=== PATIENT | female | born 1935 | race Caucasian/White ===

== ENCOUNTER → 2016-10-09 | Outpatient (CLI) | payer OTHER ==
[~2016-10-09] MED LIST: ALPRAZOLAM ER0.5 MG PO; ALPRAZOLAM PO; ASPIRIN PO; ATENOLOL PO; ATENOLOL50 MG PO; CALCIUM 500 + D1 TAB PO; CARTIA XT180 M1 PO; CARTIA XT180 MG PO; ELIQUIS5 MG; FOSAMAX PO; LEXAPRO PO; LIPITOR20 MG PO; LISINOPRIL PO; NORVASC PO; OMEPRAZOLE40 M1 PO; POTASSIUM GLUCO99 MG PO; PRILOSEC PO; SIMVASTATIN80 MG PO; ZESTRIL40 MG PO; ZOCOR PO; ZOLOFT PO
[2016-10-09 14:19] LABS: BASOPHIL% 0.2 % (0-2.5); EOSINOPHIL# 0.1 X10e3 (0-0.7); EOSINOPHIL% 1.5 % (0.0-7.0); HEMATOCRIT 37.1 % (35.0-45.0); HEMOGLOBIN 12.4 gm/dL (12.0-16.0); LYMPHOCYTE# 1.6 X10e3 (1.0-3.5); LYMPHOCYTE% 29.9 % (17.0-45.0); MEAN CELL VOLUME 94.2 FL (83-96); MEAN CORPUSCULAR HEMOGLOBIN 31.4 PG (28-34); MEAN CORPUSCULAR HGB CONC 33.3 g/dL (30-36); MEAN PLATELET VOLUME 7.2 FL (6.5-11.5); MONOCYTE# 0.8 X10e3 (0-1.0); MONOCYTE% 15.4 % (3.0-12.0); NEUTROPHIL# 2.9 X10e3 (1.5-7.1); PLATELET COUNT 212 X10e3 (140-420); RED BLOOD COUNT 3.94 X10e (3.90-5.30); RED CELL DISTRIBUTION WIDTH 13.3 % (11.0-15.5); WHITE BLOOD COUNT 5.4 X10e3 (4.0-10.5)
[2016-10-09 14:20] LABS: DIFF IND NO
[2016-10-09 15:26] LABS: ALBUMIN SERUM 4.2 g/dL (3.5-5.0); BILIRUBIN,TOTAL 0.5 mg/dL (0.2-2.0); BUN/CREATININE RATIO 11.66; CALCIUM SERUM 9.2 mg/dL (8.4-10.2); CREATININE SERUM 0.6 mg/dL (0.6-1.4); GLOM FILT RATE Estimated 84.9 mL/min (>60); POTASSIUM 4.1 mmol/L (3.5-5.1); PROTEIN TOTAL SERUM 6.3 g/dL (6.0-8.3)
== END | disposition home or self-care (01) ==
LOC: CLAB 13:58
PROVIDERS: Internal Medicine Gastroenterology
DX: R79.89 Other specified abnormal findings of blood chemistry (principal)
CPT/HCPCS: 36415; 80053; 85025

== ENCOUNTER → 2016-11-13 | Day surgery (SDC) | payer OTHER ==
--- NOTE | ~2016-11-13 | EKG ---
PATIENT: BEAR CARRASQUILLO UNIT #: [id number] Ventricular Rate: 84 BPM Atrial Rate: 94 BPM QRS Duration: 92 ms Q-T Interval: 394 ms QTC Calculation(Bezet): 465 ms Calculated R [place]: 74 degrees Calculated T [place]: 71 degrees Diagnosis Line: Atrial fibrillation Diagnosis Line: Nonspecific ST and T wave abnormality , probably Diagnosis Line: digitalis effect Diagnosis Line: Abnormal ECG Diagnosis Line: When compared with ECG of 12-JAN-2010 15:27, Diagnosis Line: Atrial fibrillation has replaced Sinus rhythm Diagnosis Line: Confirmed by NANCY LARRY MD ([id number]) on 11/14/2016 Diagnosis Line: 10:35:45 AM INTERPRETING MD: LARON BARKER
--- NOTE | ~2016-11-13 | OR ---
Unit #: [id number] #: [id number] Patient: BEAR CARRASQUILLO [id number] [address] [address] [id number] O MR#: [id number] NAME: BEAR CARRASQUILLO ROOM: Date of Procedure: 11/13/2016 Admission Date: 11/13/2016 Surgeon: Natalio Pat M.D. : 1935 Attending Physician: Natalio Pat M.D. Primary Care Physician: Italo Dejesus M.D. OPERATIVE REPORT PREOPERATIVE DIAGNOSIS Profound nausea. The patient had intermittent nausea for the past several months. There is no history of vomiting. Her appetite and weight are unchanged. PROCEDURE PERFORMED Upper gastrointestinal endoscopy. POSTOPERATIVE DIAGNOSES 1. The patient had moderate gastritis involving the mid body and antrum of the stomach with erosions, erythema, and patchy erythematous streaks. Appropriate biopsies obtained for CLOtest. 2. Rest of the examination up to third part of the duodenum was normal. RECOMMENDATIONS No specific treatment is indicated. Her symptoms are fairly sporadic. The patient will be followed up in the office after the results of CLOtest. SEDATION USED MAC. DESCRIPTION OF PROCEDURE Following detailed explanation of the potential risks and complications of upper endoscopy, namely perforation, bleeding, complication related to sedation, the patient was brought to GI lab and laid in the left lateral decubitus position. Lubricated tip of the Olympus video upper endoscope was passed through the bite block into the proximal esophagus under direct vision. The entire esophageal mucosa was examined and appeared normal. Z-line was nicely demarcated, there being no esophagitis or hiatus hernia. The scope was then advanced into the gastric cavity and the latter was insufflated. Mucosa of the fundus, body, and antrum was examined. The patient was noted to have antral erythema, erosions, and erythematous streaks as well as in the distal body of the stomach. Pylorus was intubated with visualization of the normal duodenal bulb and second and third part of the duodenum. Upon withdrawal and retroflexion, incisura, cardia, and greater curve examined and biopsy obtained from the antrum for CLOtest. The scope was withdrawn in the distal esophagus. The entire esophageal mucosa was examined all the way up to pharynx. No additional findings noted. The patient tolerated the procedure without any postprocedure complications. Unit #: [id number] #: [id number] Patient: BEAR CARRASQUILLO Melissa by... Naomi Hill/saritha TD: 11/13/2016 08:02 JOB #: [id number] OPERATIVE REPORT Page 1 of 1 X Natalio Pat MD PROCEDURE OPERATIVE NOTE
--- NOTE | ~2016-11-13 | CO ---
Unit #: [id number] #: [id number] Patient: BEAR JUNE [id number] [address] [place], [place] [address] [id number] O MR#: [id number] NAME: BEAR JUNE ROOM: Age: 81 Sex: F Admission Date: 11/13/2016 : 1935 Attending Physician: Natalio Pat M.D. Primary Care Physician: Italo Dejesus M.D. Requesting Physician: Natalio Pat M.D. CONSULTATION REPORT REASON FOR CONSULTATION REQUEST Atrial fibrillation. HISTORY OF PRESENT ILLNESS Mrs. June is a pleasant 81-year-old seen in the recovery room after endoscopy with her boyfriend present. He is a patient of Dr. Costello at [facility]. She has no cardiac history. Today, she underwent endoscopy, by Dr. Pat, and atrial fibrillation was noted. She has a history of dyslipidemia but no history of hypertension or diabetes although her fasting blood sugar today is high. She has no endocrine history, history, but she does have GERD, and chronic nausea. She has had no angina or anginal equivalent, PND, orthopnea, syncope, presyncope, edema, or claudication. She does have intermittent leg swelling, not consistent. PAST MEDICAL HISTORY Dyslipidemia. PAST SURGICAL HISTORY EGD today. REVIEW OF SYSTEMS As per history of present illness. Otherwise, as stated below. GENERAL: No recent fever or chills. No recent weight change. ENDOCRINE: Negative for thyroid disease. HEENT: No auditory or visual disturbances. GASTROINTESTINAL: Chronic nausea. RESPIRATORY: She sleeps poorly, up and down all night, she states. CARDIOVASCULAR: Vide supra. GENITOURINARY: No dysuria. No back pain suggestive of nephrolithiasis. NEUROLOGIC: No seizure disorder, recent CVA, or TIA. PSYCHOLOGICAL: No depression. FAMILY HISTORY Negative for premature atherosclerotic disease. SOCIAL HISTORY No tobacco use. Takes only about two beers every two weeks. ALLERGIES Sulfa and Ceclor. Unit #: [id number] #: [id number] Patient: BEAR JUNE MEDICATIONS 1. Cartia 180 mg daily. 2. Zestril 40 mg daily. 3. Atenolol 50 mg daily. 4. Simvastatin 80 mg daily. 5. Omeprazole 40 mg daily. 6. Alprazolam 0.5 mg daily. PHYSICAL EXAMINATION GENERAL: Pleasant, alert, in no acute distress. VITAL SIGNS: Blood pressure 165/75 (no meds today), heart rate is 88 and irregularly irregular, respiratory rate is 16, height 67 inches, weight 54 kilograms. SKIN: Warm and dry. No xanthelasma. MUSCULOSKELETAL: No missing digits. Moves easily for evaluation. NEUROLOGICAL: Appropriate mood and affect. Alert and oriented x3. HEENT: Pupils equal, round and reactive. No oral cyanosis. No icterus. NECK: Carotids clear to auscultation with no carotid bruits. Normal carotid upstroke bilaterally. Thyroid is normal in size and texture without masses or tenderness. CHEST: Clear to auscultation with no rales or wheezes. Good effort. CARDIAC: Irregularly irregular rhythm. Grade 1/6 MR murmur. ABDOMEN: No hepatosplenomegaly, masses or tenderness. Normal bowel sounds. No abdominal bruits heard. EXTREMITIES: No clubbing, cyanosis or edema. Excellent posterior tibial and dorsalis pedis pulses. DIAGNOSTIC STUDIES CARDIOVASCULAR: I reviewed the ECG which shows no acute ST changes. Heart rate is 84 and irregularly irregular. Fasting glucose 119, creatinine 0.8, potassium 3.4, TSH low at 0.71, hemoglobin is 14.1, white blood count 5.3, platelet count 211,000. IMPRESSION 1. Unknown onset atrial fibrillation, rate controlled. 2. Possible sleep apnea. 3. Mild hypokalemia. 4. Borderline hyperthyroidism. 5. Gastroesophageal reflux disease . RECOMMENDATIONS She is okay to go home. Her boyfriend follows up with Dr. Costello and they are going to try to get an appointment with him. She is rate controlled with the diltiazem. I added Eliquis 5 mg daily because her CHADS score is approximately 3, with age, female, hypertension. No history of heart failure. No history of diabetes but fasting glucose is high. Recommended follow up as soon as possible, and possible sleep study, as well as follow up regarding further thyroid studies. Dictated by... Roscoe Booker M.D. FREDY/sammie Unit #: [id number] #: [id number] Patient: BEAR JUNE TD: 11/13/2016 11:41 JOB #: [id number] CONSULTATION REPORT Page 1 of 1 X Roscoe Booker MD CONSULTATION REPORT
[2016-11-13 09:06] LABS: BASOPHIL% 0.1 % (0-2.5); EOSINOPHIL% 0.5 % (0.0-7.0); HEMOGLOBIN 14.1 gm/dL (12.0-16.0); LYMPHOCYTE# 1.3 X10e3 (1.0-3.5); LYMPHOCYTE% 25.1 % (17.0-45.0); MEAN CELL VOLUME 94.3 FL (83-96); MEAN CORPUSCULAR HEMOGLOBIN 31.6 PG (28-34); MEAN CORPUSCULAR HGB CONC 33.5 g/dL (30-36); MEAN PLATELET VOLUME 8.4 FL (6.5-11.5); MONOCYTE# 0.4 X10e3 (0-1.0); NEUTROPHIL# 3.5 X10e3 (1.5-7.1); NEUTROPHIL% 66.3 % (40-75); PLATELET COUNT 211 X10e3 (140-420); RED BLOOD COUNT 4.45 X10e (3.90-5.30); RED CELL DISTRIBUTION WIDTH 13.4 % (11.0-15.5); WHITE BLOOD COUNT 5.3 X10e3 (4.0-10.5)
[2016-11-13 09:08] LABS: DIFF IND NO
[2016-11-13 09:39] LABS: ALBUMIN SERUM 4.7 g/dL (3.5-5.0); BILIRUBIN,TOTAL 0.7 mg/dL (0.2-2.0); CALCIUM SERUM 9.7 mg/dL (8.4-10.2); CREATININE SERUM 0.8 mg/dL (0.6-1.4); GLOM FILT RATE Estimated 68.7 mL/min (>60); POTASSIUM 3.4 mmol/L (3.5-5.1); PROTEIN TOTAL SERUM 7.5 g/dL (6.0-8.3)
== END | disposition home or self-care (01) ==
LOC: COPS 05:47
PROVIDERS: Anesthesiology
DX: K29.70 Gastritis, unspecified, without bleeding (principal); K21.9 Gastro-esophageal reflux disease without esophagitis; M17.9 Osteoarthritis of knee, unspecified; I10 Essential (primary) hypertension; E78.5 Hyperlipidemia, unspecified; F41.9 Anxiety disorder, unspecified; Z87.01 Personal history of pneumonia (recurrent); Z88.2 Allergy status to sulfonamides; Z88.1 Allergy status to other antibiotic agents; Z79.899 Other long term (current) drug therapy; Z90.49 Acquired absence of other specified parts of digestive tract
CPT/HCPCS: 80053; 84443; 84484; 85025; 87077; 93005

== ENCOUNTER 2017-03-06 00:51 | Emergency (ER) | payer OTHER ==
[~2017-03-06] VITALS: Ht 162.6 cm; Wt 52.2 kg
--- NOTE | ~2017-03-06 | CR173 ---
[facility] A Service of [facility] & [facility] RADIOLOGY TEXT RESULTS PATIENT: BEAR CARRASQUILLO LOCATION: [facility] : 34 UNIT #: [id number] AGE: [address]: Meche Ocampo APRN SEX: F ORDER DR: [id number] [facility] [address] [facility] [facility]. [place], [place] [address] [id number] E MR#: [id number] Acc #: [id number] NAME: BEAR CARRASQUILLO : 1935 SEX: F STUDY DATE/TIME: 03/06/2017 1:55 UNIT: [facility] ROOM: STUDY DESCRIPTION: CR Knee 3 Views Rt Attending Physician: Meche Ocampo A.P.R.N. Ordering Physician: Meche Ocampo A.P.R.N. Primary Care Physician: Italo Dejesus M.D. MEDICAL IMAGING REPORT This report is preliminary unless electronic signature is present EXAM Right knee series INDICATIONS Right knee pain after a fall today. PROCEDURE Three views of the right knee COMPARISON None FINDINGS No acute fracture or dislocation. Significant medial compartment arthrosis. IMPRESSION No acute findings. Dictated by... Raad Palmer M.D. THIS IS AN ELECTRONICALLY VERIFIED REPORT Raad Palmer M.D. at 03/06/2017 9:54 PM EED/psc TD: 03/06/2017 11:25 JOB #: [id number] MEDICAL IMAGING REPORT Page 1 of 1 COPY
--- NOTE | ~2017-03-06 | CR282 ---
[facility] A Service of [facility] & [facility] RADIOLOGY TEXT RESULTS PATIENT: BEAR CARRASQUILLO LOCATION: [facility] : 34 UNIT #: [id number] AGE: [address]: Meche Ocampo APRN SEX: F ORDER DR: [id number] [facility] [address] [place], [place] [address] [id number] E MR#: [id number] Acc #: [id number] NAME: BEAR CARRASQUILLO : 1935 SEX: F STUDY DATE/TIME: 03/06/2017 2:01 UNIT: [facility] ROOM: STUDY DESCRIPTION: CR Wrist Min 3 View Rt Attending Physician: Meche Ocampo A.P.R.N. Ordering Physician: Meche Ocampo A.P.R.N. Primary Care Physician: Italo Dejesus M.D. MEDICAL IMAGING REPORT This report is preliminary unless electronic signature is present EXAM Right wrist series. INDICATIONS Right wrist pain after a fall today. PROCEDURE Three views of the right wrist. COMPARISON 02/27/2015 FINDINGS Generalized osteopenia. No acute fracture or dislocation. IMPRESSION No acute findings. Dictated by... Raad Palmer M.D. THIS IS AN ELECTRONICALLY VERIFIED REPORT Raad Palmer M.D. at 03/06/2017 9:54 PM CURRY/mirtha TD: 03/06/2017 11:23 JOB #: [id number] MEDICAL IMAGING REPORT Page 1 of 1 COPY
== END 2017-03-06 02:59 | disposition home or self-care (01) ==
LOC: CED 00:51
DX: S63.501A Unspecified sprain of right wrist, initial encounter (principal); S80.01XA Contusion of right knee, initial encounter; I10 Essential (primary) hypertension; K21.9 Gastro-esophageal reflux disease without esophagitis; Z79.899 Other long term (current) drug therapy; Z88.2 Allergy status to sulfonamides; Z88.8 Allergy status to other drugs, medicaments and biological substances; W18.09XA Striking against other object with subsequent fall, initial encounter; Y92.009 Unspecified place in unspecified non-institutional (private) residence as the place of occurrence of the external cause
CPT/HCPCS: 29125; 73110; 73562; 99283

== ENCOUNTER 2017-03-11 18:29 | Emergency (ER) | payer OTHER ==
[~2017-03-11] VITALS: Ht 162.6 cm; Wt 52.6 kg
--- NOTE | ~2017-03-11 | CR133 ---
[facility] A Service of [facility] & [facility] RADIOLOGY TEXT RESULTS PATIENT: BEAR CARRASQUILLO LOCATION: [facility] : 34 UNIT #: [id number] AGE: [address]: Aisha Rodriguez MD SEX: F ORDER DR: [id number] [place] [id number] [facility]. [place], [place] [address] [id number] E MR#: [id number] Acc #: [id number] NAME: BEAR CARRASQUILLO. : 1935 SEX: F STUDY DATE/TIME: 03/11/2017 19:25 UNIT: [facility] ROOM: STUDY DESCRIPTION: CR Forearm 2 View Rt Attending Physician: Aisha Rodriguez M.D. Ordering Physician: Aisha Rodriguez M.D. Primary Care Physician: Italo Dejesus M.D. MEDICAL IMAGING REPORT This report is preliminary unless electronic signature is present EXAM Right forearm, 2 views COMPARISON None INDICATION 82-year-old female with posterior swelling and bruising and pain in the right forearm since falling a week ago. FINDINGS There is diffuse osteopenia. Bones are anatomically aligned. Not well appreciated on comparison radiographs of the right wrist on the same date, there is a nondisplaced fracture of the ulnar styloid, and there is questionable but suspected transverse fracture line through the distal radial metadiaphyseal junction. There appears to be step-off at the radial aspect with apparent fracture line seen passing through the ulnar aspect of the distal radius. IMPRESSION Not well appreciated on radiographs of the wrist on the same date, there is an acute to subacute fracture through the ulnar styloid without displacement. There is no evidence of bony healing. Findings are also highly suggestive of fracture through the distal radial metadiaphysis without displacement. Clinical correlation is recommended. Consider orthopedic consultation. Dictated by... Dusty Cerda M.D. THIS IS AN ELECTRONICALLY VERIFIED REPORT Dusty Cerda M.D. at 03/17/2017 9:22 AM [facility] A Service of [facility] & [facility] RADIOLOGY TEXT RESULTS PATIENT: BEAR CARRASQUILLO LOCATION: [facility] : 34 UNIT #: [id number] AGE: [address]: Aisha Rodriguez MD SEX: F ORDER DR: Deepa TD: 03/12/2017 10:37 JOB #: [id number] MEDICAL IMAGING REPORT Page 1 of 1 COPY
--- NOTE | ~2017-03-11 | CR282 ---
[facility] A Service of [facility] & [facility] RADIOLOGY TEXT RESULTS PATIENT: BEAR CARRASQUILLO LOCATION: [facility] : 34 UNIT #: [id number] AGE: [address]: Aisha Rodriguez MD SEX: F ORDER DR: [id number] [facility] [address] [place] [facility]. [place], [place] [address] [id number] E MR#: [id number] Acc #: [id number] NAME: BEAR CARRASQUILLO. : 1935 SEX: F STUDY DATE/TIME: 03/11/2017 19:22 UNIT: [facility] ROOM: STUDY DESCRIPTION: CR Wrist Min 3 View Rt Attending Physician: Aisha Rodriguez M.D. Ordering Physician: Aisha Rodriguez M.D. Primary Care Physician: Italo Dejesus M.D. MEDICAL IMAGING REPORT This report is preliminary unless electronic signature is present EXAM Right wrist, 3 views. COMPARISON March 06, 2015, and February 27, 2017, as well as 2 views of the right forearm on the same date. INDICATIONS 82-year-old female with right wrist pain since falling 1 week ago. FINDINGS There is diffuse osteopenia. Bones are anatomically aligned. There is no evidence of acute or healing fracture. There is mild degenerative change at the first carpometacarpal joint. IMPRESSION No evidence of acute fracture or dislocation of the right wrist. Dictated by... Dusty Cerda M.D. THIS IS AN ELECTRONICALLY VERIFIED REPORT Dusty Cerda M.D. at 03/17/2017 9:20 AM MAY/mirtha TD: 03/12/2017 10:16 JOB #: [id number] MEDICAL IMAGING REPORT Page 1 of 1 COPY
== END 2017-03-11 21:25 | disposition home or self-care (01) ==
LOC: CED 18:29
DX: S52.614A Nondisplaced fracture of right ulna styloid process, initial encounter for closed fracture (principal); I48.91 Unspecified atrial fibrillation; I10 Essential (primary) hypertension; E03.9 Hypothyroidism, unspecified; K21.9 Gastro-esophageal reflux disease without esophagitis; E78.5 Hyperlipidemia, unspecified; Z88.2 Allergy status to sulfonamides; Z88.8 Allergy status to other drugs, medicaments and biological substances; Z79.899 Other long term (current) drug therapy; W19.XXXA Unspecified fall, initial encounter; Y92.009 Unspecified place in unspecified non-institutional (private) residence as the place of occurrence of the external cause
CPT/HCPCS: 29125; 73090; 73110; 99283